=== PATIENT | male | born 1985 | race Caucasian/White ===

== ENCOUNTER → 2024-03-31 13:15 | Outpatient (CLI) | payer BC, SELFPAY ==
--- NOTE | 2024-03-31 13:14 | DI.RAD_ITS ---
Exam(s) XR CHEST 2V PA LATERAL EXAM: XR CHEST 2V PA LATERAL CLINICAL HISTORY: J06.9 Acute UIR, unspecified, evaluate pathology - PNA TECHNIQUE: 2D digital imaging was performed. Two views. COMPARISON: No exams were available for comparison FINDINGS: HEART: Normal size. Aorta: Not dilated. PULMONARY VASCULATURE: Normal. Mediastinum: Small calcified AP window lymph node. LUNGS: Clear. Calcified granuloma left upper lobe. PLEURAL SPACE: No pleural effusion or pneumothorax. BONE:Unremarkable for age. Soft tissues: Unremarkable. IMPRESSION: No acute abnormality. DATA REPOSITORY: RADIATION DOSE DELIVERED:
== END ==
PROVIDERS: Visit Provider Nurse Practitioner Family
DX: J06.9 Acute upper respiratory infection, unspecified (principal)
CPT/HCPCS: 71046